=== PATIENT | female | born 1960 | race Two or more races ===

== ENCOUNTER → 2024-10-25 | Outpatient (CLI) | payer MEDICAID, SELFPAY ==
--- NOTE | 2024-10-25 | XR_ITS ---
Examination: Lumbar spine 7 views TECHNIQUE: AP, lateral, standing lateral flexion, standing lateral extension, coned lateral lower lumbar spine, BERGER, and NIRAJ, 7 views Exam date and time: October 25, 2024 1128 hours INDICATIONS: Back pain years FINDINGS: Moderate osteopenia Lumbar levoscoliosis 12 degrees Diffuse moderate to advanced facet arthropathy No lumbar fracture Mild to moderate diffuse lumbar degenerative disc disease most severe at L4-L5, L5-S1 Significant posterior osteophyte formation at the L4-L5 and the L5-S1 levels Moderate reduced range of motion and infection Attention IMPRESSION: Diffuse [id number] lumbar degenerative disc disease, most severe at L4-L5, L5-S1 Significant spinal stenosis at the L4-L5, L5-S1 levels
== END | disposition home or self-care (01) ==
PROVIDERS: PCP Physician Assistant; Referring Provider Physician Assistant; Visit Provider Physician Assistant
DX: M51.369 Other intervertebral disc degeneration, lumbar region without mention of lumbar back pain or lower extremity pain (principal); M51.379 Other intervertebral disc degeneration, lumbosacral region without mention of lumbar back pain or lower extremity pain; M48.061 Spinal stenosis, lumbar region without neurogenic claudication; M48.07 Spinal stenosis, lumbosacral region
CPT/HCPCS: 72114

== ENCOUNTER → 2025-05-29 | Outpatient (CLI) | payer MEDICAID, SELFPAY ==
--- NOTE | 2025-05-29 07:45 | XR_ITS ---
Examination: MRI lumbar spine without contrast Date and time of exam: May 29, 2025, 0808 hours, comparison 05/03/2025 INDICATIONS: Hypoxia chest and abdominal pain today Technique: Multiple MRI axial and sagittal sections lumbar spine. Sagittal T2-weighted images, TR 3500, TE 118 T1 weighted transverse sections, TR 688 T8.5, T2-weighted sagittal sections T1 weighted sagittal sections TR 621, TE 30 T2 axial sections, TR 4, 190, TE 84. Findings: Adequate alignment lumbar vertebral bodies on the lateral view Diffuse lumbar disc desiccation Mild disc narrowing L5-S1 No lumbar fracture No spondylolisthesis L5-S1 7 mm central lumbar disc bulge is displacing both S1 nerve roots L4-L5 6 mm central lumbar disc bulge contiguous with the right and left L5 nerve roots More cephalad levels are unremarkable IMPRESSION: L5-S1 7 mm central lumbar disc bulges displacing both S1 nerve roots L4-L5 6 mm central and right disc bulge contiguous with the right and left L5 nerve roots
== END | disposition home or self-care (01) ==
LOC: SMRI 07:21
PROVIDERS: PCP Physician Assistant; Referring Provider Physician Assistant; Visit Provider Physician Assistant
DX: M51.370 Other intervertebral disc degeneration, lumbosacral region with discogenic back pain only (principal); M51.360 Other intervertebral disc degeneration, lumbar region with discogenic back pain only
CPT/HCPCS: 72148